=== PATIENT | female | born 1995 | race Caucasian/White ===

== ENCOUNTER 2017-04-11 20:00 | Emergency (ER) | payer SELFPAY ==
[2017-04-11 20:06] VITALS: BP 130/79
[2017-04-11] MEDS ORDERED: PENICILLIN V POTASSIUM 500 MG TABLET PO ONE (21:15)
[2017-04-11] MEDS ORDERED: ACETAMINOPHEN 325 MG TABLET PO ONE (21:15)
[2017-04-11] MEDS ORDERED: DEXAMETHASONE SOD PHOS INJ 10 MG/1 ML VIAL IM ONE (21:15)
--- NOTE | 2017-04-11 21:18 | ER Document Report ---
HPI - HPI Patient complains to provider of: sore throat Pain Level: 3 Context: Patient is a 21-year-old female that comes emergency department with chief complaint of sore throat and fever that started earlier today. She denies abdominal pain, cough, vomiting. No obvious sick contacts. Patient takes control but no other daily medications. Past Medical History - General Information source: Patient - Social History Smoking Status: Never Smoker Frequency of alcohol use: None Drug Abuse: None Lives with: Family Family History: Reviewed & Not Pertinent Patient has suicidal ideation: No Patient has homicidal ideation: No - Medical History Medical History: Negative Renal/ Medical History: Denies: Hx Peritoneal Dialysis Surgical Hx: Negative - Immunizations Immunizations up to date: Yes Hx Diphtheria, Pertussis, Tetanus Vaccination: Yes Vertical Provider Document - CONSTITUTIONAL General Appearance: WD/WN, No Apparent Distress - INFECTION CONTROL TRAVEL OUTSIDE OF THE [place] IN LAST 30 DAYS: No - HEENT HEENT: Atraumatic, Normocephalic. negative: Normal ENT Exam - I cannot visualize the right tonsil, the left tonsil is erythematous with some exudates, there is a rash over the posterior pharynx, otherwise unremarkable oral and pharyngeal exam. - NECK Neck: Lymphadenopathy-Left, Lymphadenopathy-Right - RESPIRATORY Respiratory: Breath Sounds Normal, No Respiratory Distress O2 Sat by Pulse Oximetry: 97 - CARDIOVASCULAR Cardiovascular: Regular Rate, Regular Rhythm - GI/ABDOMEN Gastrointestinal: Abdomen Soft, Abdomen Non-Tender - BACK Back: Normal Inspection - MUSCULOSKELETAL/EXTREMETIES Musculoskeletal/Extremeties: MAEW, FROM, Non-Tender - NEURO Level of Consciousness: Awake, Alert, Appropriate - DERM Integumentary: Warm, Dry, No Rash Course - Re-evaluation Re-evalutation: Patient with obvious exudative pharyngitis, anterior cervical adenopathy, and fever. No cough. Has all criteria for strep per centor criteria. No evidence of peritonsillar abscess or airway compromise. Patient is only borderline tachycardic on my exam. Treating fever, giving antibiotics, giving dexamethasone for adenopathy. I did discuss swabbing for strep but this was declined after discussion. No abdominal pain or obvious splenomegaly to suggest mono. Discussed follow-up and return precautions, parent and patient state understanding and agreement. - Vital Signs Vital signs: Temp Pulse Resp BP Pulse Ox 100.7 F H 123 H 20 130/79 H 97 04/11/17 20:04 04/11/17 20:04 04/11/17 20:04 04/11/17 20:04 04/11/17 20:04 Discharge - Discharge Clinical Impression: Exudative pharyngitis, Anterior cervical adenopathy Fever Qualifiers: Fever type: unspecified Qualified Code(s): R50.9 - Fever, unspecified Condition: Stable Disposition: HOME, SELF-CARE Instructions: Strep Throat ([facility]) Additional Instructions: Your examination shows throat infection, swollen lymph nodes, and fever consistent with a strep throat infection. Take the antibiotics to completion. Take Tylenol or ibuprofen for pain and fever. Follow-up with primary care. There is still a chance this is viral and may take longer to resolve. Return to emergency department for any concerning or worsening symptoms including swelling of your throat, difficulty swallowing, spiking fever, or any other concerning symptoms. Prescriptions: Penicillin V Potassium [Penicillin Vk 500 mg Tablet] 500 mg PO BID #20 tablet
== END 2017-04-11 21:25 | disposition home or self-care (01) ==
LOC: ER 20:00
DX: J02.9 Acute pharyngitis, unspecified (principal); R59.9 Enlarged lymph nodes, unspecified; R50.9 Fever, unspecified
CPT/HCPCS: 99282; 96372; J1100